=== PATIENT | male | born 1930 | race Caucasian/White ===

== ENCOUNTER 2016-07-20 06:12 | Inpatient (IN) | payer MEDICARE, OTHER ==
[~2016-07-20] VITALS: Ht 172.7 cm; Wt 81.3 kg
[2016-07-20] VITALS (7 sets, daily range): BP systolic 109–138; BP diastolic 50–73
--- NOTE | ~2016-07-20 | CON ---
[place], [place] REPORT OF CONSULTATION NAME: POLO GRACE UNIT #: [id number] ROOM: 408 DOCTOR: KRISSY MARTIN,DARNELL Holly BIRTHDATE: [birth year] DOS: 07/24/2016 ADDENDUM After reviewing the chart and labs, I agree with the plans as described above on the management of the patient. We will follow the patient up clinically and make adjustments accordingly. DARNELL REY MD CM:CONSTR:REPORT OF CONSULTATION 3 07/26/16 0927 interface
--- NOTE | ~2016-07-20 | CON ---
[place], [place] REPORT OF CONSULTATION NAME: POLO GRACE UNIT #: [id number] ROOM: 408 DOCTOR: KIM ROMEO,AUGUST BIRTHDATE: [birth year] DOS: 07/24/2016 HISTORY OF PRESENT ILLNESS: The patient is an 86-year-old pleasant male who was admitted on 07/20/2016 with shortness of breath and dry heaves for approximately 3 days prior to admission. He had not felt well again for approximately 3 days with fatigue and body aches. His admitting blood cultures have grown Enterococcus faecalis, it is pansensitive the aminoglycocides sensitivities are not given for gentamicin and I am unable to reach Microbiology to clarify the gentamicin is likely hidden panel sensitivity. He had repeat blood cultures on 07/22/2016 which were also positive for gram-positive cocci in chains and pairs that would be consistent with Enterococcus. He does have a pacemaker-defibrillator in place. ID is consulted for Enterococcus faecalis septicemia. His antibiotics were changed to vancomycin and linezolid earlier. He was originally on Levaquin when admitted due to a diagnosis of pneumonitis. PAST MEDICAL HISTORY: As above as well as AFib, coronary artery disease, diverticulosis, hypertension, hyperlipidemia, pacemaker, skin cancer, CABG, coronary artery stent placement, hiatal hernia. Valvular disease, he is not sure which valve, he states that he has not been a candidate for valve replacement surgery in the past, but there was some discussion of femoral approach. SOCIAL HISTORY: Lives at home. Nonsmoker, nondrinker, no illicit drug use. FAMILY MEDICAL HISTORY: Father with alcoholism. Mother with breast cancer. ALLERGIES: INCLUDE PENICILLINS AND PROCAINAMIDE. LABORATORY DATA: Cultures as reviewed above. Blood cultures were obtained today as well and they are pending. Sed rate of 3. WBC 7.0, platelets 136. BUN 41, creatinine 1.32. RADIOLOGY: Chest x-ray on admission was clear. Abdominal ultrasound was unremarkable. CURRENT MEDICATIONS: Include linezolid, Bumex, aspirin, Zyloprim, Hytrin, Zocor, Coreg, Solu-Medrol, DuoNeb, Restoril, Zofran, morphine sulfate, [place]. REVIEW OF SYSTEMS: Alert and oriented. Denies any pain. No nausea or vomiting. Dry heaves have resolved. No diarrhea. He does have some shortness of breath that he was admitted with, somewhat improved. No cough. He has been afebrile since admission. Denies any dysuria or frequency or hematuria. He does have a history of GI bleed in March of last year. He also has gouty arthritis, has had been having lower extremity edema for some time, he is not really sure how long. No rash or itch. No headache or dizziness. No chest pain or palpitations. He does have a defibrillator-pacemaker in place. Does have occasional heartburn. PHYSICAL EXAMINATION: VITAL SIGNS: Temperature 97.4, pulse 74, respirations 22, BP 149/78. [place], [place] REPORT OF CONSULTATION NAME: POLO GRACE UNIT #: [id number] ROOM: [facility] DOCTOR: KIM ROMEOAUGUST BIRTHDATE: [birth year] GENERAL: An 86-year-old male, in no acute distress, nontoxic in appearance. HEAD, EYES, EARS, NOSE AND THROAT: Normocephalic. Mucous membranes pink and moist. No thrush. NECK: No cervical lymphadenopathy. LUNGS: Diminished left base respirations, even and unlabored. HEART: Regular rhythm with murmur noted. ABDOMEN: Soft, nondistended, positive bowel sounds, nontender. CHEST: Left chest pacemaker is unremarkable. EXTREMITIES: +2 edema bilateral lower extremities. No deformity or cyanosis. SKIN: Warm, pale, dry and intact, free of rashes. 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 PLAN: At this point, we will change his antibiotics to vancomycin and gentamicin. The sensitivity for the Enterococcus to gentamicin needs to be confirmed when there is a tech in microbiology as they have all left for the day. He needs to have a 2D echocardiogram and then almost certainly need a LARISA. His cardiologists are in [place], but a 2D echo could be performed here. Repeat blood cultures from today are pending. Case discussed with Dr. Darnell Rey. SAE ALVAREZ CNP DARNELL REY MD CM:CONSTR:REPORT OF CONSULTATION [id number] 07/26/16 1053 interface
[~2016-07-20 06:12] MED LIST: ALLOPURINOL100 MG PO; ASPIRIN81 M1 PO; Avapro300 MG PO; B12,B-12,B 12500 MC1 PO; BUMETANIDE1 MG PO; COREG25 MG PO; COUMADIN5 M2 PO; DOXYCYCLINE40 MG PO; SIMVASTATIN20 MG PO; TERAZOSIN HCL10 M1 PO; ZESTRIL40 MG PO
[2016-07-20 07:21] LABS: BASO % 0.2 % (0.0-1.0); EOS % 0.3 % (1.0-4.0); HEMATOCRIT 40.4 % (42.0-52.0); HEMOGLOBIN 12.9 g/dl (14.0-18.0); IG # 0.1 10*3/uL (0.0-0.1); LYMPH # 0.4 10*3/uL (1.3-4.4); LYMPH % 3.9 % (27.0-41.0); MEAN CELL VOLUME 84.9 fl (80.0-94.0); MEAN CORPUSCULAR HGB 27.1 pg (27.0-31.0); MEAN CORPUSCULAR HGB CONC 31.9 g/dl (33.0-37.0); MEAN PLATELET VOLUME 11.5 fl (9.6-12.3); MONO # 0.6 10*3/uL (0.1-1.0); MONO % 5.6 % (3.0-9.0); NEUT # 9.3 10*3/uL (2.3-7.9); NEUT % 88.7 % (47.0-73.0); PLATELET COUNT AUTOMATED 120 10*3/uL (130-400); RED BLOOD COUNT 4.76 10*6/uL (4.50-5.90); RED CELL DISTRI WIDTH 16.4 % (0-14.5); WHITE BLOOD COUNT 10.5 10*3/uL (4.8-10.8)
[2016-07-20 07:39] LABS: ALBUMIN 3.3 gm/dl (3.1-4.5); BILIRUBIN, TOTAL 2.7 mg/dl (0.2-1.0); TOTAL PROTEIN 6.9 gm/dL (6.4-8.2)
[2016-07-20 07:41] LABS: TROPONIN I 0.071 ng/ml (<0.045)
[2016-07-20 07:51] LABS: INTERNATIONAL NORM RATIO 2.6 (2.0-3.5); PROTHROMBIN TIME 28.8 SECONDS (9.0-12.4)
[2016-07-20 09:13] LABS: LA>2 REFLEX 2 HR DRAW NOW
[2016-07-20 12:42] LABS: CKMB 1.3 ng/ml (0.5-3.6)
[2016-07-20 12:47] LABS: TROPONIN I 0.067 ng/ml (<0.045)
[2016-07-20 16:22] LABS: BILIRUBIN NEGATIVE (NEGATIVE); BLOOD TRACE-INTACT (NEGATIVE); CLARITY SL CLOUDY (CLEAR); COLOR YELLOW (YELLOW); GLUCOSE NEGATIVE (NEGATIVE); KETONE NEGATIVE (NEGATIVE); LEUKO ESTERASE NEGATIVE (NEGATIVE); NITRITE NEGATIVE (NEGATIVE); PH 5.5 (5.0-9.0); PROTEIN 1+ (NEGATIVE); SPECIFIC GRAVITY >= 1.030 (1.005-1.030); UROBILINOGEN 0.2 E.U./dl (0.2-1.0)
[2016-07-20 16:37] LABS: BACTERIA 1+; EPITHELIAL CELLS 0-2; HYALINE CAST TNTC; MUCOUS 1+; RBC 0-2 rbc/hpf (0-2); URINE REFLEX COMMENT YES (NO)
[2016-07-20 18:18] LABS: CKMB 1.9 ng/ml (0.5-3.6)
[2016-07-20 18:22] LABS: TROPONIN I 0.06 ng/ml (<0.045)
[2016-07-21] VITALS: BP 139/65
[2016-07-21 00:53] LABS: CKMB 2.5 ng/ml (0.5-3.6)
[2016-07-21 01:11] LABS: TROPONIN I 0.052 ng/ml (<0.045)
[2016-07-21 07:02] LABS: HEMATOCRIT 42.2 % (42.0-52.0); MEAN CELL VOLUME 86.7 fl (80.0-94.0); MEAN CORPUSCULAR HGB 26.7 pg (27.0-31.0); MEAN CORPUSCULAR HGB CONC 30.8 g/dl (33.0-37.0); MEAN PLATELET VOLUME 11.8 fl (9.6-12.3); PLATELET COUNT AUTOMATED 103 10*3/uL (130-400); RED BLOOD COUNT 4.87 10*6/uL (4.50-5.90); RED CELL DISTRI WIDTH 16.1 % (0-14.5); WHITE BLOOD COUNT 8.8 10*3/uL (4.8-10.8)
[2016-07-21 07:33] LABS: INTERNATIONAL NORM RATIO 2.9 (2.0-3.5); PROTHROMBIN TIME 32.8 SECONDS (9.0-12.4)
[2016-07-21 07:34] LABS: ACANTHOCYTES FEW; LYMPHOCYTE # 0.2 10*3/uL (1.3-4.4); NEUTROPHIL # 8.6 10*3/uL (2.3-7.9); NEUTROPHILS 98 % (47-73); OVALOCYTES MANY; TOTAL CELLS COUNTED 100 #CELLS
[2016-07-21 07:35] LABS: ALBUMIN 3.1 gm/dl (3.1-4.5); ALKALINE PHOSPHATASE 44 U/L (45-117); BILIRUBIN, TOTAL 1.4 mg/dl (0.2-1.0); BUN 36 mg/dl (7-24); BURR CELLS MODERATE; CARBON DIOXIDE 33 mmol/L (21-32); CHLORIDE 101 mmol/L (98-107); CHOLESTEROL 93 mg/dL (<200); EST GLOM FILT AFRICAN AMERICAN > 60 ml/min; FREE T4 0.96 ng/dl (0.76-1.46); GLUCOSE 156 mg/dL (65-99); HDL CHOLESTEROL 49 mg/dl (40-60); LDL CHOLESTEROL 30 mg/dL (9-159); MAGNESIUM 2.4 mg/dL (1.5-2.1); PHOSPHOROUS 3.3 mg/dL (2.5-4.9); PLATELET SUFFICIENCY LOW (NORMAL); POTASSIUM 4.4 mmol/L (3.5-5.1); SCHISTOCYTES FEW; SGOT/AST 19 IU/L (3-35); SGPT/ALT 20 U/L (12-78); SODIUM 142 mmol/L (136-145); TOTAL PROTEIN 6.4 gm/dL (6.4-8.2); TRIGLYCERIDES 71 mg/dl (<150); VLDL CHOLESTEROL 14 mg/dL (6-40)
[2016-07-21 07:56] LABS: HEMOGLOBIN A1c 6.2 % (4.8-5.6)
[2016-07-21 08:00] VITALS: BP 142/80
[2016-07-21 08:45] LABS: VITAMIN D, 25-HYDROXY 34.3 ng/mL (30-100)
[2016-07-21 08:46] LABS: FOLIC ACID 3.22 ng/mL (>5.38)
[2016-07-21 12:00] VITALS: BP 137/71
[2016-07-21 16:00] VITALS: BP 144/89
[2016-07-21 20:00] VITALS: BP 124/73
[2016-07-22] VITALS: BP 136/59
[2016-07-22 06:44] LABS: HEMATOCRIT 40.6 % (42.0-52.0); HEMOGLOBIN 12.7 g/dl (14.0-18.0); MEAN CELL VOLUME 85.1 fl (80.0-94.0); MEAN CORPUSCULAR HGB 26.6 pg (27.0-31.0); MEAN CORPUSCULAR HGB CONC 31.3 g/dl (33.0-37.0); MEAN PLATELET VOLUME 12.4 fl (9.6-12.3); PLATELET COUNT AUTOMATED 122 10*3/uL (130-400); RED BLOOD COUNT 4.77 10*6/uL (4.50-5.90); WHITE BLOOD COUNT 9.6 10*3/uL (4.8-10.8)
[2016-07-22 07:10] LABS: BILIRUBIN, TOTAL 1.1 mg/dl (0.2-1.0); POTASSIUM 3.8 mmol/L (3.5-5.1); TOTAL PROTEIN 6.2 gm/dL (6.4-8.2)
[2016-07-22 08:00] VITALS: BP 128/72
[2016-07-22 08:03] LABS: ACANTHOCYTES FEW; ATYPICAL LYMPHS 1 % (0-0); LYMPHOCYTE # 0.2 10*3/uL (1.3-4.4); MONOCYTE # 0.3 10*3/uL (0.1-1.0); NEUTROPHIL # 9.1 10*3/uL (2.3-7.9); NEUTROPHILS 95 % (47-73); OVALOCYTES MANY; PLATELET SUFFICIENCY LOW (NORMAL); SCHISTOCYTES FEW; TOTAL CELLS COUNTED 100 #CELLS
[2016-07-22 12:00] VITALS: BP 112/64
[2016-07-22 16:00] VITALS: BP 142/73
[2016-07-22 18:26] LABS: PROTHROMBIN TIME 64.2 SECONDS (9.0-12.4)
[2016-07-22 18:29] LABS: INTERNATIONAL NORM RATIO 5.4 (2.0-3.5)
[2016-07-22 20:00] VITALS: BP 136/78
[2016-07-23] VITALS: BP 125/66
[2016-07-23 07:17] LABS: HEMATOCRIT 38.4 % (42.0-52.0); HEMOGLOBIN 12.2 g/dl (14.0-18.0); MEAN CELL VOLUME 83.7 fl (80.0-94.0); MEAN CORPUSCULAR HGB 26.6 pg (27.0-31.0); MEAN CORPUSCULAR HGB CONC 31.8 g/dl (33.0-37.0); MEAN PLATELET VOLUME 12.3 fl (9.6-12.3); PLATELET COUNT AUTOMATED 129 10*3/uL (130-400); RED BLOOD COUNT 4.59 10*6/uL (4.50-5.90); RED CELL DISTRI WIDTH 16.2 % (0-14.5); WHITE BLOOD COUNT 8.1 10*3/uL (4.8-10.8)
[2016-07-23 07:31] LABS: ALBUMIN 2.9 gm/dl (3.1-4.5); ALKALINE PHOSPHATASE 44 U/L (45-117); BUN 42 mg/dl (7-24); CARBON DIOXIDE 30 mmol/L (21-32); CHLORIDE 100 mmol/L (98-107); EST GLOM FILT AFRICAN AMERICAN > 60 ml/min; GLUCOSE 189 mg/dL (65-99); POTASSIUM 4.1 mmol/L (3.5-5.1); SGOT/AST 13 IU/L (3-35); SGPT/ALT 25 U/L (12-78); SODIUM 141 mmol/L (136-145); TOTAL PROTEIN 5.9 gm/dL (6.4-8.2)
[2016-07-23 07:39] LABS: MONOCYTE # 0.2 10*3/uL (0.1-1.0); NEUTROPHIL # 7.9 10*3/uL (2.3-7.9); NEUTROPHILS 98 % (47-73); TOTAL CELLS COUNTED 100 #CELLS
[2016-07-23 07:40] LABS: ACANTHOCYTES FEW; BURR CELLS FEW; OVALOCYTES MANY; PLATELET SUFFICIENCY NORMAL (NORMAL); SCHISTOCYTES FEW
[2016-07-23 07:53] LABS: PROTHROMBIN TIME 61.1 SECONDS (9.0-12.4)
[2016-07-23 07:59] LABS: INTERNATIONAL NORM RATIO 5.2 (2.0-3.5)
[2016-07-23 08:00] VITALS: BP 150/47
[2016-07-23 12:00] VITALS: BP 114/62
[2016-07-23 16:00] VITALS: BP 135/70
[2016-07-23 20:00] VITALS: BP 137/65
[2016-07-24] VITALS: BP 127/68
[2016-07-24 07:06] LABS: HEMATOCRIT 39.8 % (42.0-52.0); HEMOGLOBIN 12.6 g/dl (14.0-18.0); MEAN CELL VOLUME 83.6 fl (80.0-94.0); MEAN CORPUSCULAR HGB 26.5 pg (27.0-31.0); MEAN CORPUSCULAR HGB CONC 31.7 g/dl (33.0-37.0); MEAN PLATELET VOLUME 11.6 fl (9.6-12.3); PLATELET COUNT AUTOMATED 136 10*3/uL (130-400); RED BLOOD COUNT 4.76 10*6/uL (4.50-5.90); RED CELL DISTRI WIDTH 16.1 % (0-14.5)
[2016-07-24 07:36] LABS: BUN 41 mg/dl (7-24); CARBON DIOXIDE 33 mmol/L (21-32); CHLORIDE 99 mmol/L (98-107); EST GLOM FILT AFRICAN AMERICAN > 60 ml/min; GLUCOSE 189 mg/dL (65-99); POTASSIUM 4.1 mmol/L (3.5-5.1); SODIUM 142 mmol/L (136-145)
[2016-07-24 07:39] LABS: INTERNATIONAL NORM RATIO 4.1 (2.0-3.5); PROTHROMBIN TIME 47.2 SECONDS (9.0-12.4)
[2016-07-24 08:00] VITALS: BP 152/74
[2016-07-24 08:03] LABS: ACANTHOCYTES FEW; BURR CELLS FEW; LYMPHOCYTE # 0.2 10*3/uL (1.3-4.4); MONOCYTE # 0.1 10*3/uL (0.1-1.0); NEUTROPHIL # 6.7 10*3/uL (2.3-7.9); NEUTROPHILS 95 % (47-73); OVALOCYTES MANY; PLATELET SUFFICIENCY NORMAL (NORMAL); TOTAL CELLS COUNTED 100 #CELLS
[2016-07-24 12:00] VITALS: BP 156/85
[2016-07-24 16:00] VITALS: BP 149/78
[2016-07-24 20:00] VITALS: BP 135/69
[2016-07-25] VITALS: BP 117/69
[2016-07-25 06:12] LABS: HEMATOCRIT 41.1 % (42.0-52.0); HEMOGLOBIN 12.9 g/dl (14.0-18.0); MEAN CELL VOLUME 85.3 fl (80.0-94.0); MEAN CORPUSCULAR HGB 26.8 pg (27.0-31.0); MEAN CORPUSCULAR HGB CONC 31.4 g/dl (33.0-37.0); MEAN PLATELET VOLUME 12.6 fl (9.6-12.3); PLATELET COUNT AUTOMATED 143 10*3/uL (130-400); RED BLOOD COUNT 4.82 10*6/uL (4.50-5.90); RED CELL DISTRI WIDTH 15.9 % (0-14.5); WHITE BLOOD COUNT 7.5 10*3/uL (4.8-10.8)
[2016-07-25 06:38] LABS: LYMPHOCYTE # 0.2 10*3/uL (1.3-4.4); MONOCYTE # 0.2 10*3/uL (0.1-1.0); NEUTROPHIL # 7.1 10*3/uL (2.3-7.9); NEUTROPHILS 95 % (47-73); TOTAL CELLS COUNTED 100 #CELLS
[2016-07-25 06:39] LABS: ACANTHOCYTES FEW; BURR CELLS FEW; OVALOCYTES MANY; PLATELET SUFFICIENCY NORMAL (NORMAL); POLYCHROMASIA SLIGHT
[2016-07-25 06:40] LABS: BUN 41 mg/dl (7-24); CARBON DIOXIDE 35 mmol/L (21-32); CHLORIDE 98 mmol/L (98-107); EST GLOM FILT AFRICAN AMERICAN > 60 ml/min; GLUCOSE 197 mg/dL (65-99); SODIUM 141 mmol/L (136-145)
[2016-07-25 06:42] LABS: POTASSIUM 5.2 mmol/L (3.5-5.1)
[2016-07-25 08:00] VITALS: BP 140/74
[2016-07-25 09:21] LABS: INTERNATIONAL NORM RATIO 2.5 (2.0-3.5); PROTHROMBIN TIME 28.3 SECONDS (9.0-12.4)
[2016-07-25 12:00] VITALS: BP 145/78
[2016-07-25 16:00] VITALS: BP 146/75
[2016-07-25 20:00] VITALS: BP 138/74
[2016-07-26] VITALS: BP 141/70
[2016-07-26 06:16] LABS: HEMATOCRIT 42.8 % (42.0-52.0); HEMOGLOBIN 13.3 g/dl (14.0-18.0); MEAN CELL VOLUME 84.8 fl (80.0-94.0); MEAN CORPUSCULAR HGB 26.3 pg (27.0-31.0); MEAN CORPUSCULAR HGB CONC 31.1 g/dl (33.0-37.0); MEAN PLATELET VOLUME 12.4 fl (9.6-12.3); PLATELET COUNT AUTOMATED 155 10*3/uL (130-400); RED BLOOD COUNT 5.05 10*6/uL (4.50-5.90); RED CELL DISTRI WIDTH 15.7 % (0-14.5); WHITE BLOOD COUNT 7.2 10*3/uL (4.8-10.8)
[2016-07-26 06:20] LABS: INTERNATIONAL NORM RATIO 1.8 (2.0-3.5)
[2016-07-26 06:43] LABS: LYMPHOCYTE # 0.4 10*3/uL (1.3-4.4); NEUTROPHIL # 6.8 10*3/uL (2.3-7.9); NEUTROPHILS 94 % (47-73); OVALOCYTES MODERATE; TOTAL CELLS COUNTED 100 #CELLS
[2016-07-26 06:44] LABS: ACANTHOCYTES FEW; PLATELET SUFFICIENCY NORMAL (NORMAL)
[2016-07-26 08:00] VITALS: BP 140/64
[2016-07-26 12:00] VITALS: BP 158/97
[2016-07-26 16:00] VITALS: BP 153/67
[2016-07-26 20:00] VITALS: BP 148/88
[2016-07-27] VITALS: BP 141/72
[2016-07-27 07:14] LABS: BUN 39 mg/dl (7-24); CARBON DIOXIDE 36 mmol/L (21-32); CHLORIDE 92 mmol/L (98-107); EST GLOM FILT AFRICAN AMERICAN > 60 ml/min; GLUCOSE 192 mg/dL (65-99); POTASSIUM 3.3 mmol/L (3.5-5.1); SODIUM 139 mmol/L (136-145)
[2016-07-27 07:16] LABS: INTERNATIONAL NORM RATIO 1.6 (2.0-3.5); PROTHROMBIN TIME 17.7 SECONDS (9.0-12.4)
[2016-07-27 08:00] VITALS: BP 144/76
[2016-07-27 12:00] VITALS: BP 157/78
[2016-07-27] MEDS ORDERED: ZYVOX600 MG PO (14:43)
[2016-07-27] MEDS ORDERED: PREDNISONE10 MG PO (14:57)
[2016-07-27] MEDS ORDERED: PANTOPRAZOLE SO40 MG PO (14:57)
[2016-07-27] MEDS ORDERED: FAMOTIDINE20 M1 PO (14:57)
== END 2016-07-27 16:10 | disposition home or self-care (01) | DRG 871 ==
LOC: ED 06:12 → 4E 08:34 → EDHOLD 08:34 → 4E 08:57
PROVIDERS: Emergency Medicine; Emergency Medicine Emergency Medical Services; Hospitalist; Internal Medicine
DX: A41.9 Sepsis, unspecified organism (principal); J96.01 Acute respiratory failure with hypoxia; N17.0 Acute kidney failure with tubular necrosis; J18.9 Pneumonia, unspecified organism; I48.91 Unspecified atrial fibrillation; D64.9 Anemia, unspecified; D69.6 Thrombocytopenia, unspecified; Z95.1 Presence of aortocoronary bypass graft; I25.10 Atherosclerotic heart disease of native coronary artery without angina pectoris; E78.5 Hyperlipidemia, unspecified; K59.00 Constipation, unspecified; I10 Essential (primary) hypertension; Z85.828 Personal history of other malignant neoplasm of skin; Z95.5 Presence of coronary angioplasty implant and graft; Z80.3 Family history of malignant neoplasm of breast; Z81.1 Family history of alcohol abuse and dependence; Z88.0 Allergy status to penicillin; Z88.8 Allergy status to other drugs, medicaments and biological substances; Z79.82 Long term (current) use of aspirin; Z79.899 Other long term (current) drug therapy; Z79.01 Long term (current) use of anticoagulants